=== PATIENT | female | born 1970 | race Caucasian/White ===

== ENCOUNTER 2017-10-05 19:19 | Emergency (ER) | payer OTHER ==
[~2017-10-05] VITALS: Ht 180.3 cm; Wt 78.0 kg
[2017-10-05] MEDS ORDERED: BUTALB-APAP-CA1 EACH PO (20:02)
[2017-10-05 20:46] VITALS: BP 128/68
== END 2017-10-05 20:47 | disposition home or self-care (01) ==
LOC: M.ERS 19:19
DX: R51 Headache (principal)

== ENCOUNTER 2018-11-11 12:44 | Emergency (ER) | payer OTHER ==
[~2018-11-11] VITALS: Ht 180.3 cm; Wt 68.0 kg
[~2018-11-11 12:44] MED LIST: BUTALB-APAP-CA1 EACH PO
[2018-11-11 13:07] LABS: ABSOLUTE BASOPHILS 0.1 thou/uL (0.0-0.2); ABSOLUTE EOSINOPHILS 0.2 thou/uL (0.0-0.7); ABSOLUTE LYMPHOCYTES 2.2 thou/uL (0.8-5.3); ABSOLUTE MONOCYTES 0.6 thou/uL (0.0-1.2); ABSOLUTE NEUTROPHILS 3.5 thou/uL (1.6-8.1); HEMATOCRIT 41.2 % (37.0-47.0); HEMOGLOBIN 13.8 gm/dL (12.0-15.0); LYMPHOCYTES 33.9 %; MCH 28.9 pg (26.0-34.0); MCHC 33.5 g/dL (28.0-37.0); MCV 86.2 fL (80.0-100.0); MONOCYTES 9.3 %; MPV 8.8 fl. (7.2-11.1); NUCLEATED RBCS 0 /100WBC; PLATELET COUNT* 199 thou/uL (150-400); POLYS 52.8 %; RBC 4.78 mil/uL (4.20-5.00); RDW-CV 13.8 % (10.5-14.5); WBC 6.6 thou/uL (4.0-11.0)
[2018-11-11 13:17] LABS: APTT 29.6 Seconds (25.0-31.3); PROTIME 10.4 Seconds (9.20-11.50)
[2018-11-11 13:19] LABS: ANION GAP 6 mmol/L (7-16); BUN 9 mg/dL (7-18); CALCIUM 9.2 mg/dL (8.5-10.1); CHLORIDE 106 mmol/L (98-107); CO2 31 mmol/L (21-32); CREATININE 0.8 mg/dL (0.6-1.3); GLUCOSE 99 mg/dL (70-99); POTASSIUM 3.4 mmol/L (3.5-5.1); SODIUM 143 mmol/L (136-145)
[2018-11-11 13:33] LABS: ALBUMIN 3.9 g/dL (3.4-5.0); ALKALINE PHOSPHATASE 54 U/L (46-116); CK-MB MASS 0.9 ng/mL (<0.5-3.6); LIPASE 382 U/L (73-393); MAGNESIUM 1.9 mg/dL (1.8-2.4); NT-PRO BRAIN NAT PEPTIDE 201 pg/mL (<300); SGOT 21 U/L (15-37); SGPT 33 U/L (30-65); TOTAL BILIRUBIN 0.4 mg/dL (<0.1-1.0); TOTAL PROTEIN 7.5 g/dL (6.4-8.2); TROPONIN-I LEVEL <0.06 ng/mL (<0.06)
[2018-11-11 13:56] VITALS: BP 117/58
--- NOTE | 2018-11-12 13:58 | EKG ---
[place] [address] ELECTROCARDIOGRAM REPORT Name: LONNY JONES [id number] Admission: 11/11/18 Attend Phys: Discharge: 11/11/18 Date of : 72 Report #: [id number] THIS REPORT FOR: //name// [facility] ED Test Date: 2018-11-11 Test Time: 12:50:01 Pat Name: LONNY JONES Department: Room: Gender: F [employer]: : [id number] Requested By: Chemo Fabian Order Number: [id number] MD: Cristhian Huber Measurements Intervals Blanding Rate: 68 P: 46 IA: 111 QRS: 43 QRSD: 92 T: 41 QT: 579 QTc: 617 Interpretive Statements Sinus rhythm Borderline short IA interval Abnrm T, consider ischemia, anterolateral lds Prolonged QT interval No previous ECG available for comparison Electronically Signed On 11-12-2018 13:58:05 CDT by Cristhian Huber [email or web address] <ELECTRONICALLY SIGNED> By: Cristhian Huber MD, [facility] 11/12/18 1358 1250 1250 Cristhian Huber MD, FACC /EPI
== END 2018-11-11 13:56 | disposition home or self-care (01) ==
LOC: M.ERS 12:44
PROVIDERS: Family Medicine
DX: R07.89 Other chest pain (principal)